=== PATIENT | male | born 1995 | race Caucasian/White ===

== ENCOUNTER 2017-12-23 21:14 | Emergency (ER) | payer OTHER ==
--- NOTE | 2017-12-23 23:35 | ED ---
Shortness of Breath - HPI Summary HPI Summary: This patient is a 22 year old M presenting to [facility] accompanied by family with a chief complaint of SOB that began at 2015 and resolved [employer]. The patient rates the pain 0/10 in severity. Symptoms aggravated by nothing. Symptoms alleviated by sitting down. Patient reports diaphoresis, palpitations, blue color on chin, and increased heart rate. Patient denies CP. - History of Current Complaint Chief Complaint: EDShortnessOfBreath Time Seen by Provider: 12/23/17 23:26 Hx Obtained From: Patient Onset/Duration: Sudden Onset, Lasting Hours, Resolved Timing: Constant Current Severity: Mild Aggrevating Factors: Nothing Alleviating Factors: Other - Sitting down Associated Signs & Symptoms: Diaphoresis Related History: Obesity - Allergy/Home Medications Allergies/Adverse Reactions: Allergies Allergy/AdvReac Type Severity Reaction Status Date / Time Cephalosporins Allergy Hives Verified 12/23/17 21:37 Penicillins Allergy Hives Verified 12/23/17 21:37 Home Medications: Home Medications Zestril 10 MG- 1 tab PO DAILY 12/23/17 [History Confirmed 12/23/17] PMH/Surg Hx/FS Hx/Imm Hx Previously Healthy: No Cardiovascular History: Reports: Hx Supraventricular Ventricular Tachycardia Opthamlomology History: Denies: Hx Legally Blind EENT History: Denies: Hx Deafness Infectious Disease History: No Infectious Disease History: Denies: Traveled Outside the [place] in Last 30 Days - Social History Occupation: Unemployed Lives: With Family Review of Systems Positive: Skin Diaphoresis Cardiovascular: Other - Positive increased heart rate Positive: Palpitations. Negative: Chest Pain Positive: Shortness Of Breath Positive: Other - Positive blue hue to chin All Other Systems Reviewed And Are Negative: Yes Physical Exam - Summary Physical Exam Summary: Appearance: Well-appearing, obese, lying in bed comfortably Skin: Warm, dry, no obvious rash Eyes: sclera anicteric, no conjunctival pallor ENT: mucous membranes moist, pharynx appears normal Neck: Supple, nontender Respiratory: Clear to auscultation, no signs of respiratory distress Cardiovascular: Normal S1, S2. No murmurs. Normal distal pulses in tibial and radial bilaterally. Mild tachycardia Abdomen: Soft, nontender, normal active bowel sounds present Musculoskeletal: Normal, Strength/ROM Intact Neurological: A&Ox3, awake and alert, mentation is normal, speech is fluent and appropriate Psychiatric: affect is normal, does not appear anxious or depressed Triage Information Reviewed: Yes Vital Signs On Initial Exam: Initial Vitals Temp Pulse Resp BP Pulse Ox 97.8 F 101 16 140/89 99 12/23/17 21:25 12/23/17 21:25 12/23/17 21:25 12/23/17 21:25 12/23/17 21:25 Vital Signs Reviewed: Yes Diagnostics - Vital Signs Vital Signs Temp Pulse Resp BP Pulse Ox 12/23/17 21:25 97.8 F 101 16 140/89 99 - Laboratory Result Diagrams: 12/23/17 23:46 12/23/17 23:45 Lab Statement: Any lab studies that have been ordered have been reviewed, and results considered in the medical decision making process. - Additional Comments Diagnostic Additional Comments: An EKG taken at 2140 reveals NSR at 99BPM, P waves, QRS complex, and T waves are within normal limits, T waves and intervals are normal, no ischemic changes. This is a normal EKG Course/Dx - Course Course Of Treatment: Healthy obese 22-year-old man with symptoms that sound like a near syncopal episode. He never actually lost consciousness and there are no other concerning features of his history or physical exam. Routine laboratory studies, EKG, and observation are reassuring. He appears to be stable for discharge. - Diagnoses Provider Diagnoses: Near syncope Discharge - Sign-Out/Discharge Documenting (check all that apply): Patient Departure - Discharge Plan Condition: Good Disposition: HOME Patient Education Materials: Near Syncope (ED) Referrals: Eugenio Mcdaniels DO [Primary Care Provider] - - Billing Disposition and Condition Condition: GOOD Disposition: Home - Attestation Statements Scribe Documentation Reviewed: Yes
[2017-12-23 23:55] LABS: ABS Basophils 0.1 10^3/ul (0-0.2); ABS Eosinophils 0.1 10^3/ul (0-0.6); ABS Lymphocytes 2.8 10^3/ul (1.0-4.8); ABS Monocytes 0.7 10^3/ul (0-0.8); ABS Neutrophils 7.4 10^3/ul (1.5-7.7); ABS Nucleated RBC 0 10^3/ul; Eosinophil % 0.9 % (0-6); Hematocrit 38 % (42-52); Hemoglobin 12.2 g/dl (14.0-18.0); Lymphocyte % 25.1 % (25-47); Mean Corpuscular HGB Conc 32 g/dl (31-36); Mean Corpuscular Hemoglobin 24 pg (27-31); Mean Corpuscular Volume 75 fL (80-94); Mean Platelet Volume 8.8 um3 (7.4-10.4); Nucleated Red Blood Cells % 0; Platelet Count 331 10^3/ul (150-450); Red Blood Count 5.11 10^6/ul (4.00-5.40); Red Cell Distribution Width 16 % (10.5-15); White Blood Count 11.1 10^3/ul (3.5-10.8)
[2017-12-24 00:11] LABS: EGFR Non-African American 130.2 (>60)
[2017-12-24 01:55] VITALS: BP 134/78
== END 2017-12-24 01:55 | disposition home or self-care (01) ==
LOC: ED 21:14
DX: R55 Syncope and collapse (principal); E66.9 Obesity, unspecified; Z86.79 Personal history of other diseases of the circulatory system; Z88.0 Allergy status to penicillin; Z88.3 Allergy status to other anti-infective agents
CPT/HCPCS: 36415; 80053; 83605; 84484; 85025; 85379; 93005; 99282

== ENCOUNTER 2018-09-16 10:56 | Emergency (ER) | payer BC ==
--- NOTE | 2018-09-16 12:38 | ED ---
Throat Pain/Nasal Congestion - HPI Summary HPI Summary: 23-year-old female presents with acute vision loss in her right eye today that was transient. He states that he noticed a spot into his right eye. He states he [place] his vision in his right eye while he was using the computer. He denies any floaters or sparkles. He states that his symptoms resolved after a few minutes. He has no headache. He denies a history of this. Denies any recent prescription changed in his eye glasses. He only has history of high blood pressure. Denies any pain. No difficulties with speech. No weakness. No numbness or tingling. No facial droop. denies any foreign body. - History of Current Complaint Chief Complaint: EDEyeProblem Time Seen by Provider: 09/16/18 11:44 - Allergies/Home Medications Allergies/Adverse Reactions: Allergies Allergy/AdvReac Type Severity Reaction Status Date / Time Cephalosporins Allergy Hives Verified 09/16/18 11:03 Penicillins Allergy Hives Verified 09/16/18 11:03 Home Medications: Home Medications Lisinopril TAB* [Prinivil TAB*] 20 mg PO DAILY 09/16/18 [History Confirmed 09/16] Nystatin CREAM* [Nystatin Cream*] 1 applic TOPICAL BID 09/16/18 [History Confirmed 09/16/18] PMH/Surg Hx/FS Hx/Imm Hx Endocrine/Hematology History: Denies: Hx Anticoagulant Therapy Respiratory History: Denies: Hx Asthma Sensory History: Denies: Hx Legally Blind, Hx Deafness Opthamlomology History: Denies: Hx Legally Blind Infectious Disease History: No Infectious Disease History: Denies: Traveled Outside the [place] in Last 30 Days - Family History Known Family History: Negative: Seizure Disorder - Social History Alcohol Use: None Substance Use Type: Reports: None Smoking Status (MU): Never Smoked Tobacco Review of Systems Negative: Fever Positive: Blurred Vision Negative: Chest Pain Negative: Shortness Of Breath All Other Systems Reviewed And Are Negative: Yes Physical Exam Triage Information Reviewed: Yes Vital Signs On Initial Exam: Initial Vitals Temp Pulse Resp BP Pulse Ox 96.0 F 82 20 151/110 97 09/16/18 10:59 09/16/18 10:59 09/16/18 10:59 09/16/18 10:59 09/16/18 10:59 Vital Signs Reviewed: Yes Appearance: Positive: Well-Appearing Skin: Positive: Warm, Dry Head/Face: Positive: Normal Head/Face Inspection Eyes: Positive: Normal, EOMI, CHLOE, Conjunctiva Clear, Other: - normal fundoscopic exam ENT: Positive: Normal ENT inspection, Pharynx normal, TMs normal Respiratory/Lung Sounds: Positive: Clear to Auscultation, Breath Sounds Present Cardiovascular: Positive: Normal, RRR Abdomen Description: Positive: Nontender, Soft Bowel Sounds: Positive: Present Musculoskeletal: Positive: Normal Neurological: Positive: Sensory/Motor Intact, Alert, Oriented to Person Place, Time, CN Intact II-III Psychiatric: Positive: Normal Diagnostics - Vital Signs Vital Signs Temp Pulse Resp BP Pulse Ox 09/16/18 10:59 96.0 F 82 20 151/110 97 - Laboratory Lab Statement: Any lab studies that have been ordered have been reviewed, and results considered in the medical decision making process. EENT Course/Dx - Course Course Of Treatment: 23-year-old female presents with acute vision loss in her right eye today that was transient. He states that he noticed a spot into his right eye. He states he [place] his vision in his right eye while he was using the computer. He denies any floaters or sparkles. He states that his symptoms resolved after a few minutes. He has no headache. He denies a history of this. Denies any recent prescription changed in his eye glasses. He only has history of high blood pressure. Denies any pain. No difficulties with speech. No weakness. No numbness or tingling. No facial droop. on exam funduscopic exam. Extraocular movements intact. Normal neuro exam. Discuss that should follow up with ophthalmology. Told if symptoms reoccur to follow-up with neurology. Patient understands agrees with plan. - Differential Diagnoses Differential Diagnoses: Retinal Artery Occlusion, Other - aura, migraine - Diagnoses Provider Diagnoses: Transient visual loss, right eye Discharge - Sign-Out/Discharge Documenting (check all that apply): Patient Departure Patient Received Moderate/Deep Sedation with Procedure: No - Discharge Plan Condition: Good Disposition: HOME Referrals: Eugenio Mcdaniels DO [Primary Care Provider] - Emile Cannon MD [Medical Doctor] - Additional Instructions: follow up with optho if occurs again after following up with optho you may need to see a neurologist Return to ED if develop any new or worsening symptoms - Billing Disposition and Condition Condition: GOOD Disposition: Home
[2018-09-16 13:05] VITALS: BP 132/74
== END 2018-09-16 13:02 | disposition home or self-care (01) ==
LOC: ED 10:56
DX: H53.121 Transient visual loss, right eye (principal); Z88.1 Allergy status to other antibiotic agents; Z88.0 Allergy status to penicillin
CPT/HCPCS: 99281